=== PATIENT | female | born 1975 | race Caucasian/White ===

== ENCOUNTER 2021-05-11 13:13 | Emergency (ER) | payer BC, OTHER ==
[2021-05-11 14:48] LABS: ACETAMINOPHEN 0 ug/mL (10-30)
[2021-05-11] MEDS ORDERED: Potassium Chloride 20 MEQ Tab.ER PO ONE (15:51)
--- NOTE | 2021-05-11 15:58 | EDM.PDOCBH ---
ED HPI GENERAL MEDICAL PROBLEM - General Chief Complaint: Behavioral/Psych Stated Complaint: MED CLEARANCE Time Seen by Provider: 05/11/21 15:17 Source of Information: Reports: Patient, RN Notes Reviewed History Limitations: Reports: No Limitations - History of Present Illness INITIAL COMMENTS - FREE TEXT/NARRATIVE: Patient is a 45-year-old female who presents to the ER for the evaluation for her acute psychosis. Patient is on committal, and is to attend the for ongoing medical management. Patient was brought in by [facility]. She [facility], since May 05, 2021, and she has been having issues of being verbally nonresponsive, refusal to eat, extremely flat affect, loud rants of imploring God is speaking to her along with out burst and expletives that the devil has verbalized to her as well. Not been sleeping much at all, she is not again eating much, or participating in behaviors at this time. She thinks that the [facility] staff is trying to poison her. When I try to speak with her, she told me "okay wench" when asked if I could listen to her heart and lungs after not verbalizing with me at all. She was apparently verbally abusive to my nursing staff as well. Vitals are stable, and she is not been known to have any sort of fever or other worsening symptoms. - Related Data Allergies Allergy/AdvReac Type Severity Reaction Status Date / Time Unable to Assess Allergy Unverified 05/11/21 13:20 Home Meds: Home Meds . [Unable to Verify Home Med List] 05/11/21 [History] Social & Family History - Tobacco Use Tobacco Use Status *Q: Unknown Ever Used Tobacco ED ROS GENERAL - Review of Systems Review Of Systems: Comprehensive ROS is negative, except as noted in HPI. ED EXAM, BEHAVIORAL HEALTH - Physical Exam Exam: See Below Exam Limited By: No Limitations General Appearance: Alert, WD/WN, No Apparent Distress Respiratory/Chest: No Respiratory Distress, Lungs Clear, Normal Breath Sounds, No Accessory Muscle Use, Chest Non-Tender Cardiovascular: Normal Peripheral Pulses, Regular Rate, Rhythm GI/Abdominal: Normal Bowel Sounds, Soft, Non-Tender, No Distention, No Mass Extremities: Normal Inspection, Normal Capillary Refill Neurological: Alert Psychiatric: Alert, Sabianist Delusions, Paranoid Thoughts, Threatening Behavior (she has been verbally abusive, but not physically abusive) Skin Exam: Warm, Dry, Intact, Normal color, No rash #1 Interpretation EKG Date: 05/11/21 Time: 13:30 Rhythm: NSR Rate (Beats/Min): 97 [place]: Normal P-Wave: Present QRS: Normal ST-T: Normal QT: Normal Comparison: NA - No Prior EKG EKG Interpretation Comments: No obvious ischemia or acute ST changes noted, reviewed by myself and Dr. Guillaume. COURSE, BEHAVIORAL HEALTH COMP - Course Vital Signs: Last Vital Signs Temp 98.6 F 05/11/21 13:17 Pulse 93 05/11/21 13:17 Resp 14 05/11/21 13:17 BP 133/88 05/11/21 13:17 Pulse Ox 98 05/11/21 13:17 Orders, Labs, Meds: Active Orders 24 hr Category Date Time Status EKG Documentation Completion [RC] STAT Care 05/11/21 13:21 Active Laboratory Tests 05/11/21 05/11/21 05/11/21 Range/Units 13:25 13:46 13:46 WBC (3.98-10.04) K/mm3 RBC (3.98-5.22) M/mm3 Hgb (11.2-15.7) gm/dl Hct (34.1-44.9) % MCV (79.4-94.8) fl MCH (25.6-32.2) pg MCHC (32.2-35.5) g/dl RDW Std Deviation (36.4-46.3) fL Plt Count (182-369) K/mm3 MPV (9.4-12.3) fl Neut % (Auto) (34.0-71.1) % Lymph % (Auto) (19.3-51.7) % [place] % (Auto) (4.7-12.5) % Eos % (Auto) (0.7-5.8) Baso % (Auto) (0.1-1.2) % Neut # (Auto) (1.56-6.13) K/mm3 Lymph # (Auto) (1.18-3.74) K/mm3 [place] # (Auto) (0.24-0.36) K/mm3 Eos # (Auto) (0.04-0.36) K/mm3 Baso # (Auto) (0.01-0.08) K/mm3 Sodium (136-145) mEq/L Potassium (3.5-5.1) mEq/L Chloride (98-107) mEq/L Carbon Dioxide (21-32) mEq/L Anion Gap (5-15) BUN (7-18) mg/dL Creatinine (0.55-1.02) mg/dL Est Cr Clr Drug Dosing Estimated GFR (MDRD) (>60) mL/min BUN/Creatinine Ratio (14-18) Glucose (70-99) mg/dL Calcium (8.5-10.1) mg/dL Total Bilirubin (0.2-1.0) mg/dL AST (15-37) U/L ALT (14-59) U/L Alkaline Phosphatase (46-116) U/L Total Protein (6.4-8.2) g/dl Albumin (3.4-5.0) g/dl Globulin gm/dL Albumin/Globulin Ratio (1-2) TSH 3rd Generation (0.358-3.74) uIU/mL Urine HCG, Qual Negative (NEGATIVE) Salicylates (2.8-20) mg/dL Urine Opiates Screen Negative (JWVGDL=298) Ur Buprenorphine Scrn Negative (CUTOFF=10) Ur Oxycodone Screen Negative (HLH5JW=690) Urine Methadone Screen Negative (VHXGHD=051) Ur Propoxyphene Screen Negative (DQOJOP=301) Acetaminophen (10-30) ug/mL Ur Barbiturates Screen Negative (MKMSEA=548) Ur Tricyclics Screen Negative (PICLFW=825) Ur Phencyclidine Scrn Negative (CUTOFF=25) Ur Amphetamine Screen Negative (LRWAVP=959) U Methamphetamines Scrn Negative (KSBPXC=955) U Benzodiazepines Scrn Negative (GSWATX=067) U Cocaine Metab Screen Negative (KGXQJM=477) U Marijuana (THC) Screen Negative (CUTOFF=50) Ethyl Alcohol (0.00) gm% SARS-CoV-2 RNA (PEYMAN) Negative (NEGATIVE) 05/11/21 05/11/21 05/11/21 Range/Units 13:46 13:46 13:46 WBC 7.26 (3.98-10.04) K/mm3 RBC 4.63 (3.98-5.22) M/mm3 Hgb 14.8 (11.2-15.7) gm/dl Hct 42.2 (34.1-44.9) % MCV 91.1 (79.4-94.8) fl MCH 32.0 (25.6-32.2) pg MCHC 35.1 (32.2-35.5) g/dl RDW Std Deviation 41.2 (36.4-46.3) fL Plt Count 234 (182-369) K/mm3 MPV 10.4 (9.4-12.3) fl Neut % (Auto) 79.2 H (34.0-71.1) % Lymph % (Auto) 11.7 L (19.3-51.7) % Monroe % (Auto) 8.7 (4.7-12.5) % Eos % (Auto) 0.1 L (0.7-5.8) Baso % (Auto) 0.3 (0.1-1.2) % Neut # (Auto) 5.75 (1.56-6.13) K/mm3 Lymph # (Auto) 0.85 L (1.18-3.74) K/mm3 Monroe # (Auto) 0.63 H (0.24-0.36) K/mm3 Eos # (Auto) 0.01 L (0.04-0.36) K/mm3 Baso # (Auto) 0.02 (0.01-0.08) K/mm3 Sodium 142 (136-145) mEq/L Potassium 3.3 L (3.5-5.1) mEq/L Chloride 104 (98-107) mEq/L Carbon Dioxide 27 (21-32) mEq/L Anion Gap 14.3 (5-15) BUN 16 (7-18) mg/dL Creatinine 0.7 (0.55-1.02) mg/dL Est Cr Clr Drug Dosing TNP Estimated GFR (MDRD) > 60 (>60) mL/min BUN/Creatinine Ratio 22.9 H (14-18) Glucose 125 H (70-99) mg/dL Calcium 8.8 (8.5-10.1) mg/dL Total Bilirubin 1.0 (0.2-1.0) mg/dL AST 155 H (15-37) U/L ALT 294 H (14-59) U/L Alkaline Phosphatase 93 (46-116) U/L Total Protein 7.3 (6.4-8.2) g/dl Albumin 3.5 (3.4-5.0) g/dl Globulin 3.8 gm/dL Albumin/Globulin Ratio 0.9 L (1-2) TSH 3rd Generation 1.161 (0.358-3.74) uIU/mL Urine HCG, Qual (NEGATIVE) Salicylates 3.0 (2.8-20) mg/dL Urine Opiates Screen (KPBRFO=743) Ur Buprenorphine Scrn (CUTOFF=10) Ur Oxycodone Screen (RNC5EZ=896) Urine Methadone Screen (XLZPRH=540) Ur Propoxyphene Screen (UDCYIV=185) Acetaminophen 0 L (10-30) ug/mL Ur Barbiturates Screen (VGYJJK=727) Ur Tricyclics Screen (HUNYLB=958) Ur Phencyclidine Scrn (CUTOFF=25) Ur Amphetamine Screen (MLFTNM=444) U Methamphetamines Scrn (JSQWNF=970) U Benzodiazepines Scrn (TLEGOI=340) U Cocaine Metab Screen (QXWQWQ=281) U Marijuana (THC) Screen (CUTOFF=50) Ethyl Alcohol 0.00 (0.00) gm% SARS-CoV-2 RNA (PEYMAN) (NEGATIVE) Medications Discontinued Medications Generic Name Dose Route Start Last Admin Trade Name Freq PRN Reason Stop Dose Admin Potassium Chloride 40 meq 05/11/21 15:51 Potassium Chloride 20 Meq Tab.Er PO 05/11/21 15:52 ONETIME ONE Discharge vs Psych Eval/Treatment:: 05/11/21 15:59 Patient presents to the ER, under committal orders to be sent back to the [facility]. I did review the patient's committal forms, and it does appear the patient is acutely psychotic. She is not very cooperative with me or my staff much at all, she is been very verbally abusive. She is not physically abusive. Laboratory evaluation is essentially unremarkable, her AST and ALT are slightly elevated, we have no other labs to compare to. Urine drug screen is negative, Covid screen is negative, for all intents and purposes, patient has been deemed fit to seek care at the . I did discuss the case with Dr. Rocha at [facility] and she did graciously accept the patient in transfer. Departure - Departure Time of Disposition: 16:00 Disposition: DC/Tfer to Acute Hospital 02 Condition: Fair Clinical Impression: Acute psychosis, Medical clearance for psychiatric admission - Discharge Information *PRESCRIPTION DRUG MONITORING PROGRAM REVIEWED*: No *COPY OF PRESCRIPTION DRUG MONITORING REPORT IN PATIENT MICHAEL: No Referrals: PCP,None [Primary Care Provider] - Forms: ED Department Discharge Sepsis Event Note (ED) - Evaluation Sepsis Screening Result: No Definite Risk - Focused Exam Vital Signs: Vital Signs Temp Pulse Resp BP Pulse Ox 05/11/21 13:17 98.6 F 93 14 133/88 98 - My Orders Last 24 Hours: My Active Orders 05/11/21 13:21 EKG Documentation Completion [RC] STAT - Assessment/Plan Last 24 Hours: My Active Orders 05/11/21 13:21 EKG Documentation Completion [RC] STAT
== END 2021-05-11 16:15 ==
LOC: JD.ED 13:13
DX: F23 Brief psychotic disorder (principal); Z20.822 Contact with and (suspected) exposure to COVID-19
CPT/HCPCS: 36415; 80053; 80143; 80179; 80306; 80307; 81025; 84443; 85025; 93005; 93010; 99283; 99285-25; U0002

== ENCOUNTER 2024-07-31 09:47 | Emergency (ER) | payer BC, MEDICAID ==
[2024-07-31 10:50] LABS: BASOPHILS PERCENT AUTO 0.8 % (0.0-1.0); EOSINOPHILS ABSOLUTE AUTO 0.1 K/mm3 (0.0-0.4); EOSINOPHILS PERCENT AUTO 2.1 % (0.0-6.0); HEMATOCRIT 37.4 % (37.0-47.0); HEMOGLOBIN 12.4 gm/dl (12.0-16.0); IMMATURE GRAN ABSOLUTE AUTO 0.01 K/mm3 (0.00-0.05); IMMATURE GRAN PERCENT AUTO 0.2 % (0.0-0.4); LYMPHOCYTES ABSOLUTE AUTO 1.2 K/mm3 (1.0-4.8); MEAN CORPUSCULAR HEMOGLOBIN 29.3 pg (28.0-32.0); MEAN CORPUSCULAR HGB CONC 33.2 g/dl (32.0-36.0); MEAN CORPUSCULAR VOLUME 88.4 fl (83.0-99.0); MONOCYTES ABSOLUTE AUTO 0.5 K/mm3 (0.0-0.8); MONOCYTES PERCENT AUTO 9.8 % (0.0-8.0); NEUTROPHILS ABSOLUTE AUTO 3.4 K/mm3 (1.8-7.7); NEUTROPHILS PERCENT AUTO 65.1 % (41.0-71.0); PLATELET COUNT,PLT 222 K/mm3 (150-400); RED BLOOD CELL COUNT 4.23 M/mm3 (4.10-5.30); WHITE BLOOD CELL COUNT,WBC 5.22 K/mm3 (3.9-11.3)
[2024-07-31 11:11] LABS: ALBUMIN 3.2 g/dl (3.4-5.0); ANION GAP 11.7 (5-15); BILIRUBIN TOTAL 0.3 mg/dL (0.2-1.0); BUN/CREATININE RATIO 14.3 (14-18); CALCIUM 8.3 mg/dL (8.5-10.1); CREATININE 0.7 mg/dL (0.55-1.02); EST CRCL DRUG DOSING (CG) 87.48 mL/min; POTASSIUM,K 3.7 mEq/L (3.5-5.1); PROTEIN TOTAL,TP 6.4 g/dl (6.4-8.2)
[2024-07-31] MEDS: Famotidine 20 MG Tab PO ONE (11:23)
== END 2024-07-31 13:00 | disposition home or self-care (01) ==
LOC: JD.ED 09:47
DX: R10.13 Epigastric pain (principal)
CPT/HCPCS: 36415; 80053; 83690; 85025; 99284; A9270

== ENCOUNTER 2025-06-12 00:14 | Emergency (ER) | payer MEDICAID | END 2025-06-12 01:59 | disposition home or self-care (01) | LOC: JD.ED 00:14 | DX: K04.7 Periapical abscess without sinus (principal); M54.50 Low back pain, unspecified; W10.9XXA Fall (on) (from) unspecified stairs and steps, initial encounter; Y93.89 Activity, other specified | CPT/HCPCS: 72100; 72100-26; 99283; 99284 ==